=== PATIENT | male | born 2000 | race Caucasian/White ===

== ENCOUNTER 2023-02-06 17:13 | Emergency (ER) | payer BC ==
[~2023-02-06] VITALS: Ht 177.8 cm; Wt 93.2 kg
[2023-02-06 18:42] VITALS: BP 131/84; PULSE 88; TEMP 98.1
== END 2023-02-06 18:42 | disposition home or self-care (01) ==
LOC: COL.ER 17:13
DX: S61.411A Laceration without foreign body of right hand, initial encounter (principal); Z23 Encounter for immunization; W26.0XXA Contact with knife, initial encounter